=== PATIENT | female | born 1965 | race Caucasian/White ===

== ENCOUNTER 2020-09-26 21:08 | Observation (INO) | payer OTHER, SELFPAY ==
[2020-09-26] VITALS (7 sets, daily range): BP systolic 152–171; BP diastolic 82–102; PULSE 74–103; RESP 11–18; TEMP 36.3–36.8; O2SAT 90–98; BMI 28.3
--- NOTE | 2020-09-26 21:51 | EKG12_ITS ---
Test Reason : COUGH Blood Pressure : / mmHG Vent. Rate : 083 BPM Atrial Rate : 083 BPM P-R Int : 142 ms QRS Dur : 092 ms QT Int : 390 ms P-R-T Axes : 069 -64 084 degrees QTc Int : 458 ms Normal sinus rhythm Left anterior fascicular block Left ventricular hypertrophy Abnormal ECG Confirmed by MARY JANE LEWIS, CHANDAN ([id number]), newspaper copy editor PILI ALEXANDER ([id number]) on 09/28/2020 8:42:17 AM Referred By: CECILY Confirmed By:ZAID HINTON MD
--- NOTE | 2020-09-26 21:53 | ED.VIS.DYS ---
History of Present Illness Chief Complaint: Cough Informant: Patient Onset: Weeks - 1 Quality: Dyspnea on exertion Current Severity: Moderate Maximum Severity: Moderate Worsened by: Coughing, Exertion Relieved by: Oxygen, Rest Associated Symptoms: Bloody Sputum, Chills, Cough, Fever, Sore throat, Yellow sputum - w/ streaks of blood Chest Pain: None Narrative: Patient has had cough, myalgias, some fevers and chills, all symptoms started 1 week ago, she started developing shortness of breath and has been checking her pulse oximetry at home, she has been going down into the mid 80s, when she exerts herself for when she has bronchospasm and coughing fits. She is not on home oxygen. She does not have a history of lung disease but is a heavy smoker. 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 She was vaccinated with the Pfizer vaccine, both doses, 2-3 months ago. She was seen at urgent care 3 days ago had a negative rapid Covid and a chest x-ray that she states she was told was indicative of pneumonia for which she was placed on Augmentin. The results on that x-ray as it is interpreted at this time is normal/negative. Patient was unaware of that. - Past Medical History (1) Type 2 diabetes mellitus Status: Chronic (2) Hypertension Status: Chronic (3) Hyperlipidemia Status: Chronic Past Medical History - Allergies and Home Meds Allergies/Adverse Reactions: Allergies hydrocodone [From Vicodin] Allergy (Mild, Verified 09/26/20 21:12) Itching Primary Care Physician: Sahil Arenas MD [Primary Care Provider] - 3-5 Days Lives: Spouse/ Significant Other Smoking Status: Heavy Smoker (>10/day) Review of Systems General: Reports: Chills, Fever, Malaise, Subjective. Denies: Sweats Eyes: Denies: Visual changes - bilaterally, Diplopia ENT: Reports: Sore throat. Denies: Bilateral ear pain, Rhinorrhea Cardiovascular: Denies: Chest pain, Palpitations Respiratory: Reports: Dyspnea, Cough, Sputum, Dyspnea on exertion. Denies: Orthopnea Gastrointestinal: Denies: Abdominal pain, Nausea, Vomiting, Diarrhea, Melena, Hematochezia Genitourinary: Denies: Dysuria, Hematuria, Frequency Musculoskeletal: Reports: Myalgias. Denies: Back pain, Swelling Skin: Denies: Rash, Wounds Neurological: Reports: Headache - at times. Denies: Weakness, Numbness Physical Exam Vital Signs/Narrative: Vital Signs Temp Pulse Resp BP Pulse Ox 09/26/20 21:21 90 13 171/99 H 94 09/26/20 21:09 97.4 F L 103 H 18 165/102 H 90 Inital Vital Signs reviewed: Yes General: Well nourished, Well developed, No Acute Distress Head: Normocephalic, Atraumatic Eyes: Perrl, EOMI ENT: Moist mucous membranes, No rhinorrhea Neck: Supple, Nontender, No lymphadenopathy Cardiovascular: Regular rate, Regular rhythm, No murmurs Respiratory: No distress, Chest nontender, Wheezing, Diminished. Negative for: Rales, Rhonchi Abdomen: Soft, Nontender, Nondistended, Normal bowel sounds Back: Nontender, Normal Inspection Extremities: Nontender, No edema. Negative for: Calf Tenderness Skin: Normal color, No rash, No Trauma Neurological: Alert, Oriented x3, Cranial nerves II-XII grossly intact, Normal Strength, Normal Sensation Psychological: Normal affect, Normal Mood Diagnostic/Tx/Re-eval Impressions Chest X-Ray 09/26/20 22:18 IMPRESSION: Normal x-ray examination of the chest. Electronically Signed: Keyur Pierce DO at 22:39 EDT Tel , Service support , 09/26/20 22:18 CXR [Chest 1 View (Portable)] [RAD] Stat Laboratory Results 09/26/20 09/26/20 09/26/20 22:04 22:04 22:04 WBC 12.9 H RBC 6.41 H Hgb 14.8 Hct 50.1 H MCV 78.2 L MCH 23.1 L MCHC 29.5 L RDW Std Deviation 48.9 H RDW Coeff of Courtney 18.5 H Plt Count 276 MPV 10.7 Immature Gran % (Auto) 0.600 Neut % (Auto) 79.3 H Lymph % (Auto) 12.7 L [place] % (Auto) 7.1 Eos % (Auto) 0.0 Baso % (Auto) 0.3 Absolute Neuts (auto) 10.2 H Absolute Lymphs (auto) 1.64 Nucleated RBC % 0 Sodium 140 Potassium 4.0 Chloride 108 H Carbon Dioxide 27.0 Anion Gap 5 BUN 15 Creatinine 0.92 Estim Creat Clear Calc 55.81 Est GFR (MDRD) Af Amer 81 Est GFR (MDRD) Non-Af 67 BUN/Creatinine Ratio 16.3 Glucose 134 H Lactic Acid 1.2 Calcium 9.3 Total Bilirubin 0.40 AST 14 L ALT 30 Alkaline Phosphatase 127 H Troponin I < 0.015 Total Protein 7.8 Albumin 3.8 Globulin 4.0 Albumin/Globulin Ratio 1.0 - Rhythm Strip Rhythm Strip: Sinus Rhythm Rate: 83 Ectopy: None - EKG Initial EKG Interpretation: Sinus Rhythm, No Acute Injury Pattern, LAFB, - - LVH by voltage due to aVL > 11 Treatment - Dyspnea: Oxygen, Albuterol - MDI Repeat Evaluation: Improved - so then duoneb given, which helped more - Medical Decision Making On my interpretation 1 view chest x-ray is normal. Radiology agrees. Essentially no change compared with her x-ray from several days ago, and it does not have a Covid pattern. Furthermore, she has a leukocytosis that is mild, arguing against Covid as well. Also she feels better after albuterol. My suspicion is that she has some degree of COPD that has not necessarily been diagnosed, given that she is very heavy smoker, and she may have a viral illness and/or allergies, which the patient is questioning, that could be causing all of this and she has had no documented fevers, and a COPD exacerbation. This would explain why the antibiotic is not curing her, although it would be doing what it should be in this context which is preventing bacterial superinfection. I repeated her Covid test but with the PCR, it returned negative. After nebulizer treatment she does feel better, and respiratory agreed that she seemed very wheezy and a bit improved after the treatment, however with ambulation a very short distance to the bathroom, she became very dyspneic and desatted to 79%. Given all of this, she was given Solu-Medrol and plan is for admission. ED Disposition - Plan for ED Patient: Disposition: Acute Care Hospital [facility] Diagnosis: Acute exacerbation of chronic obstructive airways disease, Acute respiratory failure with hypoxia Referrals: Sahil Arenas MD [Primary Care Provider] - 3-5 Days
--- NOTE | 2020-09-26 21:55 | ED.RN ---
NO OLD EKGS IN MUSE
[2020-09-26 22:14] LABS: Absolute Lymphocyte Count 1.64 X10^3/uL (0.83-4.51); Absolute Neutrophil Count 10.2 X10^3/uL (2.0-7.7); Basophil# 0.04 X10^3/uL; Basophil% 0.3 % (0-1); Hematocrit 50.1 % (37-47); Hemoglobin 14.8 g/dL (12.0-15.0); Lymphocyte # 1.64 X10^3/ul (0.83-4.51); Lymphocyte % 12.7 % (19-41); Mean Corp Hgb Conc 29.5 g/dL (32-36); Mean Corpuscular Hgb 23.1 pg (27.0-32.0); Mean Corpuscular Volume 78.2 fL (81-99); Mean Platelet Vol. 10.7 fl (6.2-12.0); Monocyte# 0.92 X10^3/uL; Monocyte% 7.1 % (0-10); NRBC Flagged by Analyzer 0 % (0-5); Neutrophil # 10.24 X10^3/uL (2.7-7.7); Neutrophil % 79.3 % (47-70); Platelet Count 276 K/mm3 (150-450); RBC Distribution Width CV 18.5 % (11.6-14.6); RBC Distribution Width SD 48.9 fl (35.1-43.9); Red Blood Count 6.41 M/mm3 (4.2-5.4); White Blood Count 12.9 K/mm3 (4.4-11.0)
--- NOTE | 2020-09-26 22:18 | RAD_ITS ---
STUDY: X-RAY CHEST REASON FOR EXAM: Female, 55 years old. cough sob TECHNIQUE: Single AP portable view of the chest. COMPARISON: 09/23/2020 FINDINGS: The lungs are clear and expanded. There is no demonstrated pleural abnormality. Normal size heart. Normal mediastinum and valdo. Normal visualized pulmonary arteries. Normal visualized aortic arch and descending thoracic aorta. Normal visualized thoracic spine. Normal visualized ribs, clavicles, and shoulders. There is no demonstrated abnormality of the visualized soft tissue structures of the upper abdomen. RAD/Chest 1 View (Portable) IMPRESSION: Normal x-ray examination of the chest. Electronically Signed: Keyur Pierce DO at 22:39 EDT Tel , Service support ,
[2020-09-26 22:33] LABS: AST(SGOT) 14 U/L (15-37); Alanine Aminotransfer ALT/SGPT 30 U/L (13-56); Albumin, Serum 3.8 g/dL (3.2-5.0); Alkaline Phosphatase 127 U/L (45-117); Anion Gap 5 (5-15); BUN 15 mg/dL (7-18); BUN/Creat Ratio 16.3 RATIO (10-20); Calcium,Total 9.3 mg/dL (8.5-10.1); Chloride 108 mmol/L (98-107); Creatinine, Serum 0.92 mg/dL (0.55-1.02); EST Glomerular Filtration Rate 67 mL/min (>60); Est Glom Filt Rate - Afr Amer 81 mL/min (>60); Estimated Creatinine Clearance 55.81 ml/min; Glucose 134 mg/dL (74-106); Protein, Total 7.8 g/dL (6.4-8.2); Sodium Level 140 mmol/L (136-145)
[2020-09-26 22:34] LABS: Lactic Acid 1.2 mmol/L (0.4-1.9)
[2020-09-26] MEDS: Ipratropium/Albuterol Sulfate 3 ML AMPUL.NEB INHALATION (23:33)
[2020-09-27] VITALS (19 sets, daily range): BP systolic 126–178; BP diastolic 72–98; PULSE 67–92; RESP 13–30; TEMP 36.1–36.6; O2SAT 79–97; BMI 28.5
[2020-09-27] MEDS: MethylPREDNISolone 125 MG/2 ML Vial IV (00:06)
[2020-09-27 00:22] LABS: Bacteria 0 SEEN /hpf (None Seen); Mucous, Urine 0 SEEN /hpf (<or=2+); Squamous Epithelial Cells - UA 0 SEEN /hpf (5-10)
[2020-09-27 00:24] LABS: Color, Urine Yellow (Yellow); Glucose, Dipstick Normal (Normal); Ketone-Dipstick Negative (Negative); Leukocyte Esterase-Dipstick 25 /ul (Negative); Nitrite-Dipstick Negative (Negative); Occult Blood-Urine 25 /ul (Negative); Protein-Dipstick 15 mg/dl (Negative); Urine Bilirubin Dipstick Negative (Negative); Urine Clarity Clear (Clear); Urine Urobilinogen Normal (Normal)
[2020-09-27 00:29] LABS: Red Blood Cells-Urine 0-5 SEEN /hpf (0-5); White Blood Cells 0-5 SEEN /hpf (0-5)
--- NOTE | 2020-09-27 00:42 | HP.PCM_ITS ---
Problem List (1) Type 2 diabetes mellitus Status: Chronic (2) Hypertension Status: Chronic (3) Hyperlipidemia Status: Chronic (4) Bronchitis Status: Acute (5) Respiratory insufficiency Status: Acute History of Present Illness Date of Admission: 09/27/20 Chief Complaint: Dyspnea The patient is a 55 year old F with a significant history of diabetes mellitus; anxiety disorder; hypertension; hyperlipidemia; osteoarthritis; degenerative joint disease of the back who presents to the emergency department dyspnea. Her dyspnea is with exertion and with talking. Associated with her symptoms is productive cough and occasional hemoptysis. Last week she felt tired; had a sore throat; nausea; and nasal congestion requiring Flonase. Also he she had postnasal drip. Two days before presentation she went to an urgent care. At the urgent care rapid Covid was negative. Chest x-ray was taking and patient was prescribed Augmentin for pneumonia. Augmentin was prescribed for 10 days. She has been using Mucinex at home. She reported temperature of 99 Fahrenheit on Tylenol. She has chills. She reports body aches. At home her oxygen saturation was anywhere from 79 to 95%. At the emergency department with ambulation her oxygen saturation dropped to 79%. 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 Past Medical History Past Medical History (Chronic Problems): Chronic Problems Type 2 diabetes mellitus (Chronic) Hypertension (Chronic) Hyperlipidemia (Chronic) Allergies hydrocodone [From Vicodin] Allergy (Mild, Verified 09/26/20 21:12) Itching Home Medications: Ambulatory Orders Medication Instructions Recorded amoxicillin 875 mg-potassium 1 tablet PO BID #20 tablet 09/23/20 clavulanate 125 mg tablet escitalopram oxalate 10 mg tablet 10 mg PO DAILY 09/23/20 meloxicam 15 mg tablet 15 mg PO DAILY 09/23/20 Atorvastatin Calcium 40 mg PO QHS 09/26/20 Empagliflozin [Jardiance] 25 mg PO DAILY 09/26/20 Lisinopril/Hydrochlorothiazide 1 each PO DAILY 09/26/20 [Lisinopril-Hctz 20-12.5 mg Tab] Metformin HCl [Metformin ER 1,000 mg PO BID 09/26/20 Osmotic] Surgical History: - - Tubal ligation Lives: Spouse/ Significant Other Smoking Status: Heavy Smoker (>10/day) Tobacco Use: Cigarettes Alcohol: Occasional - *Family History Maternal History Items: Diabetes, - - Thyroid disease. Arthritis Paternal History Items: Cancer - Lungs; pancreas, Pulmonary Disease Review of Systems Constitutional: Reports: Chills, Fever, Malaise, Fatigue. Denies: Weight Change HEENT: Denies: Head Aches, Sinus Congestion, Sinus Drainage Cardiovascular: Denies: Chest Pain, Palpitations Respiratory: Reports: Cough, Hemoptysis, Shortness of breath upon exertion, Sputum production, Wheezing Gastrointestinal: Denies: Abdominal Pain, Nausea, Vomiting Genitourinary: Denies: Dysuria Musculoskeletal: Denies: Joint Pain, Joint Tenderness Skin: Denies: Rash, Wounds Neurological: Denies: Numbness, Tingling, Focal weakness Psychiatric: Reports: Anxiety, Depression. Denies: Homicidal Ideations, Suicidal Ideations Hematologic/ Lymphatic: Denies: Easy Bruising, Easy Bleeding VTE Information - Inpt Only VTE Present on Admission: No VTE Mechan Device Prophylaxis: None VTE Pharm Prophylaxis ordered?: Yes Patient Problems: Active and Suspected Problems Bronchitis (Acute) Respiratory insufficiency (Acute) - Physical Exam Vitals/I&O's: Vital Signs Temp Pulse Resp BP Pulse Ox 97 F L 82 20 H 155/81 H 97 09/27/20 00:08 09/27/20 00:23 09/27/20 00:23 09/27/20 00:23 09/27/20 00:23 Oxygen Flow Rate (L/min) 2 Oxygen Delivery Method Nasal Cannula Weight: 72.575 kg Body Mass Index (BMI) 28.3 General: Alert, Oriented x3, Cooperative HEENT: Atraumatic, PERRLA, EOMI, Normocephalic Neck: Supple, No JVD, Negative Carotid Bruits Lungs: - - Cautious Cardiovascular: Regular rate, Normal S1, Normal S2, No murmurs Abdomen: Bowel Sounds Present, Soft, Non Tender Extremities: No edema, Capillary Refill Less than 3 Seconds Skin: No rashes, No breakdown Musculoskeletal: No Tenderness to Palpation of Joints or Extremities Neurological: Cranial nerves II-XII grossly intact Psych/Mental Status: Normal Affect, Appropriate Laboratory Results 09/26/20 00:15: Urine Color Yellow, Urine Clarity Clear, Urine pH 6.0, Ur Specific [place] 1.020, Urine Protein 15 H, Urine Glucose (UA) Normal, Urine Ketones Negative, Urine Occult Blood 25 H, Urine Nitrite Negative, Urine Bilirubin Negative, Urine Urobilinogen Normal, Ur Leukocyte Esterase 25 H, Urine RBC 0-5 SEEN, Urine WBC 0-5 SEEN, Ur Squamous Epith Cells 0 SEEN, Urine Bacteria 0 SEEN, Urine Mucus 0 SEEN 09/26/20 22:00: COVID-19 (MOE) Not Detected 09/26/20 22:04: WBC 12.9 H, RBC 6.41 H, Hgb 14.8, Hct 50.1 H, MCV 78.2 L, MCH 23.1 L, MCHC 29.5 L, RDW Std Deviation 48.9 H, RDW Coeff of Courtney 18.5 H, Plt Count 276, MPV 10.7, Immature Gran % (Auto) 0.600, Neut % (Auto) 79.3 H, Lymph % (Auto) 12.7 L, [place] % (Auto) 7.1, Eos % (Auto) 0.0, Baso % (Auto) 0.3, Absolute Neuts (auto) 10.2 H, Absolute Lymphs (auto) 1.64, Nucleated RBC % 0 09/26/20 22:04: Sodium 140, Potassium 4.0, Chloride 108 H, Carbon Dioxide 27.0, Anion Gap 5, BUN 15, Creatinine 0.92, Estim Creat Clear Calc 55.81, Est GFR (MDRD) Af Amer 81, Est GFR (MDRD) Non-Af 67, BUN/Creatinine Ratio 16.3, Glucose 134 H, Calcium 9.3, Total Bilirubin 0.40, AST 14 L, ALT 30, Alkaline Phosphatase 127 H, Troponin I < 0.015, Total Protein 7.8, Albumin 3.8, Globulin 4.0, Albumin/Globulin Ratio 1.0 09/26/20 22:04: Lactic Acid 1.2 Assessment/Plan All Active Problems Bronchitis (Acute) Respiratory insufficiency (Acute) The patient is a 55 year old F with a significant history of diabetes mellitus; anxiety disorder; hypertension; hyperlipidemia; osteoarthritis; degenerative joint disease of the back who presents emergency department with his with exertion and with talking; productive cough and occasional hemoptysis; fatigue; sore throat; nausea; nasal congestion; lethargy; chills and fever; as well as hypoxia but with unremarkable chest x-ray findings. Acute hypoxemic respiratory insufficiency Required supplemental oxygenation at emergency department. Likely secondary to acute viral syndrome/bronchitis. Review of emergency department labs showed white count of 12,900. Patient was not on steroids. Radiologist impression of chest x-ray obtained on 09/26/2020 at emergency department: Normal x-rays admission of the chest. Chest x-ray was independently interpreted. I agree with radiologist interpretation. Also chest x-ray obtained on 09/23/2020 outpatient was unremarkable by radiologist interpretation and by my independent interpretation. Started on Augmentin outpatient and will continue for now. Procalcitonin ordered We will get complete respiratory pathogen panel. Rapid Covid at urgent care on 09/23/2020 was negative. PCR Covid at emergency department on 09/26/2020 was negative. Patient reports wheezing. Per emergency department doctor's examination patient was wheezing. At the time of my examination lungs sounded coarse. Received Solu-Medrol 125 mg at emergency department. Prednisone 40 mg daily ordered Mucinex schedule ordered. As needed Tessalon Perles ordered Oxygen dependent secondary to keep saturation more than 92%. Tylenol as needed ordered for fever Trend CBC and BMP. Tobacco abuse Counseled Nicotine patch prescribed Diabetes mellitus Patient with mild hyperglycemia on presentation With starting patient on steroids anticipate blood glucose to increase. Home Jardiance continued. Metformin held. Accu-Chek QA CHS with correction scale insulin ordered. Calorie controlled diet ordered.. Hypertension Blood pressure is not within goal Lisinopril and HCTZ ordered. As needed hydralazine ordered. Trend blood pressure and adjust blood pressure medications. Osteoarthritis/degenerative joint disease Meloxicam continued Hyperlipidemia Atorvastatin continued DVT prophylaxis Subcutaneous Lovenox ordered. OBSV E&M: [id number] Initial observation care L3
[2020-09-27] MEDS: guaiFENesin 1,200 MG Tablet 1200 MG PO ×3 (02:15→21:38)
[2020-09-27] MEDS: Acetaminophen 325 MG Tablet 650 MG PO ×3 (02:18→14:21)
[2020-09-27] MEDS: 0.9% Saline Lock 10 ML Syringe IV (02:20)
[2020-09-27] MEDS: Ipratropium/Albuterol Sulfate 3 ML AMPUL.NEB INHALATION ×4 (06:28→19:29)
[2020-09-27 06:55] LABS: Bedside Glucose 267 mg/dL (70-110)
[2020-09-27] MEDS: Insulin Lispro 100 UNIT/ML INSULN.PEN SC ×4 (06:55→21:38)
[2020-09-27 07:03] LABS: Absolute Lymphocyte Count 0.68 X10^3/uL (0.83-4.51); Absolute Neutrophil Count 12.2 X10^3/uL (2.0-7.7); Basophil# 0.04 X10^3/uL; Basophil% 0.3 % (0-1); Hematocrit 51.1 % (37-47); Hemoglobin 15.3 g/dL (12.0-15.0); Lymphocyte # 0.68 X10^3/ul (0.83-4.51); Lymphocyte % 5.2 % (19-41); Mean Corp Hgb Conc 29.9 g/dL (32-36); Mean Corpuscular Hgb 23.6 pg (27.0-32.0); Mean Corpuscular Volume 78.7 fL (81-99); Mean Platelet Vol. 11.5 fl (6.2-12.0); Monocyte# 0.14 X10^3/uL; Monocyte% 1.1 % (0-10); NRBC Flagged by Analyzer 0 % (0-5); Neutrophil # 12.16 X10^3/uL (2.7-7.7); Neutrophil % 92.6 % (47-70); Platelet Count 299 K/mm3 (150-450); RBC Distribution Width CV 18.6 % (11.6-14.6); RBC Distribution Width SD 48.7 fl (35.1-43.9); Red Blood Count 6.49 M/mm3 (4.2-5.4); White Blood Count 13.1 K/mm3 (4.4-11.0)
[2020-09-27 07:28] LABS: Anion Gap 6 (5-15); BUN 14 mg/dL (7-18); BUN/Creat Ratio 19.8 RATIO (10-20); Calcium,Total 9.2 mg/dL (8.5-10.1); Chloride 102 mmol/L (98-107); Creatinine, Serum 0.71 mg/dL (0.55-1.02); EST Glomerular Filtration Rate 91 mL/min (>60); Est Glom Filt Rate - Afr Amer 110 mL/min (>60); Estimated Creatinine Clearance 72.32 ml/min; Glucose 272 mg/dL (74-106); Potassium 4.1 mmol/L (3.5-5.1); Sodium Level 135 mmol/L (136-145)
[2020-09-27] MEDS: Amox/Clavulanate 875 MG Tablet PO ×2 (08:18→16:42)
[2020-09-27] MEDS: predniSONE 20 MG Tablet 40 MG PO (08:18)
[2020-09-27] MEDS: hydroCHLOROthiazide 12.5mg 12.5 MG PO (08:18)
[2020-09-27] MEDS: Meloxicam 15 MG Tablet PO (08:18)
[2020-09-27] MEDS: Lisinopril 20 MG Tablet PO (08:19)
[2020-09-27] MEDS: Escitalopram Oxalate 10 MG Tablet PO (08:19)
[2020-09-27] MEDS: Enoxaparin 40 MG/0.4 ML Syringe SC (08:19)
[2020-09-27] MEDS: Empagliflozin 25 MG Tablet PO (08:19)
[2020-09-27] MEDS: Benzonatate 100 MG Capsule PO ×2 (08:25→21:44)
[2020-09-27 08:31] LABS: Procalcitonin 0.04 ng/mL (0.00-0.09)
--- NOTE | 2020-09-27 08:33 | PCM.PN.BLA ---
Progress Note Patient is a 55-year-old lady admitted with progressive shortness of breath GENERAL: cooperative HEENT: Atraumatic; EYES; Anicteric, Normal Conjunctiva NECK; supple, normal thyroid, RESPIRATORY: Diminished to auscultation CARDIOVASCULAR: Regular S1 S2, GI: soft, normoactive bowel sounds, : No Renal angle tenderness; EXTREMITIES: No edema, no clubbing, MUSCULOSKELETAL: no muscle waisting NEURO: Awake; no lateralizing signs. SKIN: No Rash PSYCH; Flat affect 1. Acute hypoxemic respiratory insufficiency ?Secondary to acute bronchitis suspected to be secondary to viral bronchitis treated symptomatically 2. Tobacco dependence - Counseled on cessation, offered nicotine patch for tobacco cravings 3. Diabetes mellitus type II -patient's oral hypoglycemics held. Placed on long acting insulin, Accu-Cheks a.c. and at bedtime and covered with sliding scale insulin 4. Hypertension - Blood pressure well controlled, home medications continued with dose adjustment as needed 5. Generalized osteoarthritis ?Patient is on meloxicam did continue 6. Dyslipidemia -Patient is on statin therapy, continued at home dose 7. DVT prophylaxis ?Lovenox STROKE Vital Signs/Narrative: Vital Signs Temp Pulse Resp BP Pulse Ox 09/27/20 07:01 95 09/27/20 05:31 97.8 F 67 16 153/87 H 96
--- NOTE | 2020-09-27 09:27 | NURSING ---
spo2 ranges from 88% to 91% on room air. O2 2l reapplied NC
[2020-09-27 12:11] LABS: Bedside Glucose 211 mg/dL (70-110)
[2020-09-27 16:50] LABS: Bedside Glucose 239 mg/dL (70-110)
[2020-09-27] MEDS: Atorvastatin Calcium 40 MG Tablet PO (21:38)
[2020-09-27] MEDS: MELATONIN 3 MG TABLET PO (21:44)
[2020-09-27 21:55] LABS: Bedside Glucose 198 mg/dL (70-110)
[2020-09-28] VITALS (7 sets, daily range): BP systolic 108–131; BP diastolic 65–75; PULSE 68–89; RESP 9–18; TEMP 36.6–36.7; O2SAT 85–97
[2020-09-28 06:45] LABS: Bedside Glucose 123 mg/dL (70-110)
[2020-09-28 06:53] LABS: Hemoglobin 15.1 g/dL (12.0-15.0); Mean Corp Hgb Conc 30.2 g/dL (32-36); Mean Corpuscular Hgb 23.6 pg (27.0-32.0); Mean Corpuscular Volume 78.2 fL (81-99); Mean Platelet Vol. 11.2 fl (6.2-12.0); Platelet Count 285 K/mm3 (150-450); RBC Distribution Width CV 18.7 % (11.6-14.6); Red Blood Count 6.39 M/mm3 (4.2-5.4); White Blood Count 14.1 K/mm3 (4.4-11.0)
[2020-09-28 07:11] LABS: Anion Gap 7 (5-15); BUN 22 mg/dL (7-18); BUN/Creat Ratio 33.8 RATIO (10-20); Calcium,Total 9.1 mg/dL (8.5-10.1); Chloride 103 mmol/L (98-107); Creatinine, Serum 0.65 mg/dL (0.55-1.02); EST Glomerular Filtration Rate 100 mL/min (>60); Est Glom Filt Rate - Afr Amer 120 mL/min (>60); Estimated Creatinine Clearance 78.99 ml/min; Glucose 120 mg/dL (74-106); Magnesium 2.2 mg/dL (1.6-2.6); Potassium 3.6 mmol/L (3.5-5.1); Sodium Level 138 mmol/L (136-145)
[2020-09-28] MEDS: Ipratropium/Albuterol Sulfate 3 ML AMPUL.NEB INHALATION ×2 (07:33→10:22)
--- NOTE | 2020-09-28 08:47 | PCM.DC ---
- Discharge Diagnoses Current Active Problems: Current Active and Chronic Problems Type 2 diabetes mellitus (Chronic) Hypertension (Chronic) Hyperlipidemia (Chronic) Bronchitis (Acute) Respiratory insufficiency (Acute) You will use the following diet at home:: Calorie/Carbohydrate Controlled (specify 1200, 1400, etc) - 1800 Your food should be the consistency of: Regular Discharge Activity: Return to Normal Activity Allergies/Adverse Reactions: Allergies hydrocodone [From Vicodin] Allergy (Mild, Verified 09/26/20 21:12) Itching Medications to take at Discharge amoxicillin 875 mg-potassium clavulanate 125 mg tablet 1 tablet PO BID #20 tablet 09/23/20 escitalopram oxalate 10 mg tablet 10 mg PO DAILY 09/23/20 meloxicam 15 mg tablet 15 mg PO DAILY 09/23/20 Atorvastatin Calcium 40 mg PO QHS 09/26/20 Empagliflozin [Jardiance] 25 mg PO DAILY 09/26/20 Lisinopril/Hydrochlorothiazide [Lisinopril-Hctz 20-12.5 mg Tab] 1 each PO DAILY 09/26/20 Metformin HCl [Metformin ER Osmotic] 1,000 mg PO BID 09/26/20 Albuterol IH (ProAir) [Proair Hfa] 2 puff INHALATION Q4H PRN PRN #1 inhaler 09/28/20 Amox/Clavulanate Tablet [Augmentin Tablet] 875 mg PO BIDCM tablet 09/28/20 Benzonatate [Tessalon Perle] 100 mg PO TID PRN PRN #20 capsule 09/28/20 Budesonide/Formoterol 160/4.5 [Symbicort 160/4.5 Mcg Inhaler (SP)] 2 puff INHALATION BID #1 inhaler 09/28/20 Doxycycline [Vibramycin] 100 mg PO BID #14 capsule 09/28/20 predniSONE tablet 40 mg PO DAILY@0800 #10 tablet 09/28/20 The following prescriptions were given: predniSONE tablet 40 mg PO DAILY@0800 #10 tablet Transmission Status: Pending to [facility] Albuterol IH (ProAir) [Proair Hfa] 2 puff INHALATION Q4H PRN PRN #1 inhaler PRN Reason: Dyspnea/Wheezing/Sob Transmission Status: Pending to [facility] Budesonide/Formoterol 160/4.5 [Symbicort 160/4.5 Mcg Inhaler (SP)] 2 puff INHALATION BID #1 inhaler Transmission Status: Pending to [facility] Benzonatate [Tessalon Perle] 100 mg PO TID PRN PRN #20 capsule PRN Reason: COUGH Transmission Status: Pending to [facility] Doxycycline [Vibramycin] 100 mg PO BID #14 capsule Transmission Status: Pending to [facility] Primary Care Physician: Sahil Arenas MD [Primary Care Provider] - 3-5 Days Test Results: Test results from this visit will be discussed in further detail at your follow-up appointment, if applicable. Proposed Discharge Date: 09/28/20
--- NOTE | 2020-09-28 08:49 | DS.PCM_ITS ---
Discharge Date and Diagnosis - Problem List Patient Problems: Active and Suspected Problems Bronchitis (Acute) Respiratory insufficiency (Acute) Date of Admission: 09/27/20 Date of Discharge: 09/28/20 - Primary Discharge Diagnosis Acute Problems: Active Problems Bronchitis (Acute) Respiratory insufficiency (Acute) - Secondary Discharge Diagnosis Chronic Problems: Chronic Problems Type 2 diabetes mellitus (Chronic) Hypertension (Chronic) Hyperlipidemia (Chronic) Hospital Course and Treatment Summary of Care Provided: Patient is a 55-year-old lady admitted with progressive shortness of breath 1. Acute hypoxemic respiratory insufficiency ?Secondary to acute bronchitis suspected to be secondary to viral bronchitis treated symptomatically -Was assessed for home oxygen which she did qualify she will need portability since she is mobile both at home as well as in the community 2. Tobacco dependence - Counseled on cessation, offered nicotine patch for tobacco cravings 3. Diabetes mellitus type II -patient's oral hypoglycemics held. Placed on long acting insulin, Accu-Cheks a.c. and at bedtime and covered with sliding scale insulin 4. Hypertension - Blood pressure well controlled, home medications continued with dose adjustment as needed 5. Generalized osteoarthritis ?Patient is on meloxicam did continue 6. Dyslipidemia -Patient is on statin therapy, continued at home dose 7. DVT prophylaxis ?Lovenox Patient Problems: Active and Suspected Problems Bronchitis (Acute) Respiratory insufficiency (Acute) Objective: Patient is a 55-year-old lady admitted with progressive shortness of breath GENERAL: cooperative HEENT: Atraumatic; EYES; Anicteric, Normal Conjunctiva NECK; supple, normal thyroid, RESPIRATORY: Diminished to auscultation CARDIOVASCULAR: Regular S1 S2, GI: soft, normoactive bowel sounds, : No Renal angle tenderness; EXTREMITIES: No edema, no clubbing, MUSCULOSKELETAL: no muscle waisting NEURO: Awake; no lateralizing signs. SKIN: No Rash PSYCH; Flat affect 1. Acute hypoxemic respiratory insufficiency ?Secondary to acute bronchitis suspected to be secondary to viral bronchitis treated symptomatically 2. Tobacco dependence - Counseled on cessation, offered nicotine patch for tobacco cravings 3. Diabetes mellitus type II -patient's oral hypoglycemics held. Placed on long acting insulin, Accu-Cheks a.c. and at bedtime and covered with sliding scale insulin 4. Hypertension - Blood pressure well controlled, home medications continued with dose adjustment as needed 5. Generalized osteoarthritis ?Patient is on meloxicam did continue 6. Dyslipidemia -Patient is on statin therapy, continued at home dose 7. DVT prophylaxis ?Lovenox - Physical Exam Vitals/I&O's: Vital Signs Temp Pulse Resp BP Pulse Ox 97.9 F 69 12 130/75 H 94 09/28/20 03:40 09/28/20 07:34 09/28/20 07:34 09/28/20 03:40 09/28/20 07:34 Oxygen Flow Rate (L/min) [ 2 AMBULATING with Oxygen #1] Oxygen Flow Rate (L/min) 1 Oxygen Delivery Method Nasal Cannula Weight: 73.1 kg Body Mass Index (BMI) 28.5 Intake and Output for Last 24 Hours 09/26/20 09/27/20 09/28/20 23:59 23:59 23:59 Output Total 600 / 600 1000 / 1000 Balance -600 / -600 -1000 / -1000 Microbiology Past 72 Hours 09/27/20 Unknown Mucosa - Nose Respiratory Panel (PCR) - Final Rhinovirus Laboratory Results 09/27/20 11:52: POC Glucose 211 H 09/27/20 16:40: POC Glucose 239 H 09/27/20 21:36: POC Glucose 198 H 09/28/20 06:04: WBC 14.1 H, RBC 6.39 H, Hgb 15.1 H, Hct 50.0 H, MCV 78.2 L, MCH 23.6 L, MCHC 30.2 L, RDW Std Deviation 49.0 H, RDW Coeff of Courtney 18.7 H, Plt Count 285, MPV 11.2 09/28/20 06:04: Sodium 138, Potassium 3.6, Chloride 103, Carbon Dioxide 28.0, Anion Gap 7, BUN 22 H, Creatinine 0.65, Estim Creat Clear Calc 78.99, Est GFR (MDRD) Af Amer 120, Est GFR (MDRD) Non-Af 100, BUN/Creatinine Ratio 33.8 H, Glucose 120 H, Calcium 9.1, Magnesium 2.2 09/28/20 06:35: POC Glucose 123 H Current Medications Acetaminophen (Acetaminophen 325 Mg Tablet) 650 mg PO Q6H PRN PRN PRN Reason: Pain Score 1-10/Temp > 100.7 F Last Admin: 09/27/20 14:21 Dose: 650 mg Documented by: Albuterol Sulfate (Albuterol 2.5 Mg/3 Ml Vial.Neb.) 2.5 mg INHALATION Q2H PRN PRN PRN Reason: Shortness of Breath/Wheezing Albuterol/Ipratropium (Ipratropium/Albuterol Sulfate 3 Ml Ampul.Neb) 3 ml INHALATION Q4HWA.RT [facility] Last Admin: 09/28/20 07:33 Dose: 3 ml Documented by: Amoxicillin/Clavulanate Potassium (Amox/Clavulanate 875 Mg Tablet) 875 mg PO BIDCM [facility] Last Admin: 09/27/20 16:42 Dose: 875 mg Documented by: Atorvastatin Calcium (Atorvastatin Calcium 40 Mg Tablet) 40 mg PO QHS [facility] Last Admin: 09/27/20 21:38 Dose: 40 mg Documented by: Benzonatate (Benzonatate 100 Mg Capsule) 100 mg PO TID PRN PRN PRN Reason: COUGH Last Admin: 09/27/20 21:44 Dose: 100 mg Documented by: Dextrose (Dextrose 50%-Water 25 Gm/50 Ml Disp.Syrin) 0 gm IV X1 PRN; Protocol PRN Reason: Hypoglycemia Empagliflozin (Empagliflozin 25 Mg Tablet) 25 mg PO DAILY [facility] Last Admin: 09/27/20 08:19 Dose: 25 mg Documented by: Enoxaparin Sodium (Enoxaparin 40 Mg/0.4 Ml Syringe) 40 mg SC DAILY [facility] Last Admin: 09/27/20 08:19 Dose: 40 mg Documented by: Escitalopram Oxalate (Escitalopram Oxalate 10 Mg Tablet) 10 mg PO DAILY [facility] Last Admin: 09/27/20 08:19 Dose: 10 mg Documented by: Glucagon (Glucagon 1 Mg/Ml Syringe) 1 mg IM .X1 PRN PRN Reason: Hypoglycemia Guaifenesin (Guaifenesin 1,200 Mg Tablet) 1,200 mg PO BID [facility] Last Admin: 09/27/20 21:38 Dose: 1,200 mg Documented by: Hydralazine HCl (Hydralazine 20 Mg/Ml Vial) 5 mg IV Q4H PRN PRN PRN Reason: SBP > 160 OR DBP > 120 Hydrochlorothiazide (Hydrochlorothiazide 12.5mg) 12.5 mg PO DAILY [facility] Last Admin: 09/27/20 08:18 Dose: 12.5 mg Documented by: Insulin Human Lispro (Insulin Lispro 100 Unit/Ml Insuln.Pen) 0 unit SC ACHS [facility]; Protocol Last Admin: 09/28/20 06:36 Dose: Not Given Documented by: Lisinopril (Lisinopril 20 Mg Tablet) 20 mg PO DAILY [facility] Last Admin: 09/27/20 08:19 Dose: 20 mg Documented by: Melatonin (Melatonin 3 Mg Tablet) 3 mg PO QHS PRN PRN PRN Reason: INSOMNIA Last Admin: 09/27/20 21:44 Dose: 3 mg Documented by: Meloxicam (Meloxicam 15 Mg Tablet) 15 mg PO DAILY [facility] Last Admin: 09/27/20 08:18 Dose: 15 mg Documented by: Nicotine (Nicotine 21 Mg Patch) 21 mg TD DAILY [facility] Last Admin: 09/27/20 08:19 Dose: 21 mg Documented by: Ondansetron HCl (Ondansetron 4 Mg/2 Ml Vial) 4 mg IV Q8H PRN PRN PRN Reason: NAUSEA/VOMITING Prednisone (Prednisone 20 Mg Tablet) 40 mg PO DAILY@0800 [facility] Last Admin: 09/27/20 08:18 Dose: 40 mg Documented by: Senna/Docusate Sodium (Senna/Docusate Sodium 1 Tablet) 2 tablet PO BID PRN PRN PRN Reason: Constipation Sodium Chloride (0.9% Saline Lock 10 Ml Syringe) 10 - 40 ml IV UD PRN PRN Reason: SALINE FLUSH Last Admin: 09/27/20 02:20 Dose: 10 ml Documented by: Discharge Diet: 1800 Calorie Control Diet Discharge Activity: Return to Normal Activity Home Medications: Medications to take at Discharge amoxicillin 875 mg-potassium clavulanate 125 mg tablet 1 tablet PO BID #20 tablet 09/23/20 escitalopram oxalate 10 mg tablet 10 mg PO DAILY 09/23/20 meloxicam 15 mg tablet 15 mg PO DAILY 09/23/20 Atorvastatin Calcium 40 mg PO QHS 09/26/20 Empagliflozin [Jardiance] 25 mg PO DAILY 09/26/20 Lisinopril/Hydrochlorothiazide [Lisinopril-Hctz 20-12.5 mg Tab] 1 each PO DAILY 09/26/20 Metformin HCl [Metformin ER Osmotic] 1,000 mg PO BID 09/26/20 Albuterol IH (ProAir) [Proair Hfa] 2 puff INHALATION Q4H PRN PRN #1 inhaler 09/28/20 Benzonatate [Tessalon Perle] 100 mg PO TID PRN PRN #20 capsule 09/28/20 Budesonide/Formoterol 160/4.5 [Symbicort 160/4.5 Mcg Inhaler (SP)] 2 puff INHALATION BID #1 inhaler 09/28/20 Doxycycline [Vibramycin] 100 mg PO BID #14 capsule 09/28/20 predniSONE tablet 40 mg PO DAILY@0800 #10 tablet 09/28/20 Following Prescriptions Were Given to Patient: predniSONE tablet 40 mg PO DAILY@0800 #10 tablet [facility] Albuterol IH (ProAir) [Proair Hfa] 2 puff INHALATION Q4H PRN PRN #1 inhaler PRN Reason: Dyspnea/Wheezing/Sob Transmission Status[facility] Budesonide/Formoterol 160/4.5 [Symbicort 160/4.5 Mcg Inhaler (SP)] 2 puff INHALATION BID #1 inhaler Transmission Status: Pending to [facility] Benzonatate [Tessalon Perle] 100 mg PO TID PRN PRN #20 capsule PRN Reason: COUGH Transmission Status: Received by [facility] Doxycycline [Vibramycin] 100 mg PO BID #14 capsule Transmission Status: Pending to [facility] Primary Care Physician: Sahil Arenas MD [Primary Care Provider] - 3-5 Days Medical Necessity - Tobacco Use Smoking Status: Current every day smoker Tobacco Use: Cigarettes Meaningful Use Info Meaningful Use Diagnoses (Choose all that apply): None applicable OBSV E&M: 56971 Observation care discharge
--- NOTE | 2020-09-28 08:51 | PCM.WORK.EX ---
Work/School Excuse Work/School Excuse for:: Patient Please excuse this person from:: Work From: 09/26/20 through: 10/06/20
[2020-09-28] MEDS: predniSONE 20 MG Tablet 40 MG PO (09:02)
[2020-09-28] MEDS: Amox/Clavulanate 875 MG Tablet PO (09:02)
[2020-09-28] MEDS: Meloxicam 15 MG Tablet PO (09:03)
[2020-09-28] MEDS: Enoxaparin 40 MG/0.4 ML Syringe SC (09:03)
[2020-09-28] MEDS: guaiFENesin 1,200 MG Tablet 1200 MG PO (09:03)
[2020-09-28] MEDS: Escitalopram Oxalate 10 MG Tablet PO (09:03)
[2020-09-28] MEDS: Empagliflozin 25 MG Tablet PO (09:03)
[2020-09-28] MEDS: hydroCHLOROthiazide 12.5mg 12.5 MG PO (10:00)
[2020-09-28] MEDS: Lisinopril 20 MG Tablet PO (10:00)
--- NOTE | 2020-09-28 10:20 | CASEMGMT ---
Addendum entered by Maribel Moe 09/28/20 11:38: TC to [facility] [place], spoke with Coby who states O2 should be delivered at any time. Referral received. Original Note: RN FLORA notified that pt will need O2. Patient was provided a list of DME providers including quality and resource use data and consistent with the patient?s preferred geographic region, medical needs, and insurance network. The patient?s preferred provider [facility] [place]. Verified with that pt diagnosis for the O2 is COPD. Referral sent to [facility] [place] at this time.
[2020-09-28 11:40] LABS: Bedside Glucose 185 mg/dL (70-110)
--- NOTE | 2020-09-28 11:51 | NURSING ---
work excuse given
[2020-09-28] MEDS: Insulin Lispro 100 UNIT/ML INSULN.PEN SC (11:57)
--- NOTE | 2020-09-28 12:20 | PHA.DC.MC ---
Pharmacy Service has performed discharge medication reconciliation and counseling for this patient. 1. ALBUTEROL INHALER 2PUFF Q4H PRN SOB/DYSPNEA/WHEEZING 2. BENZONATATE 100MG PO TID PRN COUGH 3. SYMBICORT 160/4.5 2PUFFS BID 4. DOXYCYCLINE 100MG PO BID X 7 DAYS 5. PREDNISONE 40MG PO DAILYCM X 5 DAYS The patient's discharge medication list was reviewed for discrepancies and discrepancies were resolved. Augmentin from home continued and new order for doxycycline. Clarified with Dr. Marsh, pt only to take doxycycline. TORB to d/c Augmentin. Home Medications escitalopram oxalate 10 mg tablet 10 mg PO DAILY 09/23/20 meloxicam 15 mg tablet 15 mg PO DAILY 09/23/20 Atorvastatin Calcium 40 mg PO QHS 09/26/20 Metformin HCl [Metformin ER Osmotic] 1,000 mg PO BID 09/26/20 Albuterol IH (ProAir) [Proair Hfa] 2 puff INHALATION Q4H PRN PRN #1 inhaler 09/28/20 Benzonatate [Tessalon Perle] 100 mg PO TID PRN PRN #20 capsule 09/28/20 Budesonide/Formoterol 160/4.5 [Symbicort 160/4.5 Mcg Inhaler (SP)] 2 puff INHALATION BID #1 inhaler 09/28/20 Doxycycline [Vibramycin] 100 mg PO BID #14 capsule 09/28/20 Empagliflozin [Jardiance] 25 mg PO DAILY #30 tablet 09/28/20 Lisinopril/Hydrochlorothiazide [Lisinopril-Hctz 20-12.5 mg Tab] 1 each PO DAILY #30 tablet 09/28/20 predniSONE tablet 40 mg PO DAILY@0800 #10 tablet 09/28/20 The patient was counseled on the following discharge medications and changes in medications for homegoing were reviewed. The Reason for Use, instructions for use, and potential side effects were reviewed for all new medications. The patient's questions regarding all of their medications were answered. The patient was able to verbally demonstrate an understanding of their discharge medications.
== END 2020-09-28 14:40 | disposition home or self-care (01) ==
LOC: ED 09-27 00:21 → MS3 09-27 07:07
PROVIDERS: Admitting Provider Hospitalist; Emergency Provider Emergency Medicine; PCP Family Medicine; Visit Provider Internal Medicine
DX: J44.0 Chronic obstructive pulmonary disease with (acute) lower respiratory infection (principal); J20.9 Acute bronchitis, unspecified; E78.5 Hyperlipidemia, unspecified; E11.9 Type 2 diabetes mellitus without complications; I10 Essential (primary) hypertension; M15.9 Polyosteoarthritis, unspecified; F17.210 Nicotine dependence, cigarettes, uncomplicated; Z79.899 Other long term (current) drug therapy; Z79.84 Long term (current) use of oral hypoglycemic drugs; R06.89 Other abnormalities of breathing
CPT/HCPCS: 36415; 71045; 80048; 80053; 81001; 82962; 83605; 83735; 84145; 84484; 85025; 85027; 87040; 87633; 87635; 93005; 94640; 94667; 96372; 96374; 99218; 99406; A4216; G0378; U0002